=== PATIENT | male | born 1980 | race Caucasian/White ===

== ENCOUNTER 2016-07-13 13:31 | Inpatient (IN) | payer OTHER ==
[~2016-07-13] VITALS: Ht 182.9 cm; Wt 108.9 kg
[2016-07-13] MEDS ORDERED: MORPHINE SULFATE 4 MG/ML CPJ (NOT FOR IM USE) IV STA (15:04)
[2016-07-13] MEDS ORDERED: ONDANSETRON HCL 4MG/2ML VIAL IV STA (15:04)
[2016-07-13] MEDS ORDERED: SODIUM CHLORIDE 0.9% 1,000 ML IV ONE (15:04)
[2016-07-13 15:35] LABS: BASOPHILS % 0.5 % (0.0-2.0); CHLORIDE 106 mEq/L (98-107); EOSINOPHILS % 2.1 % (0.0-5.0); HEMATOCRIT. 44.3 % (42.0-52.0); HEMOGLOBIN. 15.3 g/dL (14.0-18.0); LYMPHOCYTES % 23.5 % (20.0-50.0); MEAN CORPUSCULAR HEMOGLOBIN 30.9 pg (28.0-32.0); MEAN CORPUSCULAR VOLUME 89.3 fL (80.0-94.0); MEAN PLATELET VOLUME 8.6 fl (7.4-10.4); MONOCYTES % 6.8 % (2.0-8.0); NEUTROPHILS % 67.1 % (40.0-76.0); PLATELET 248 x1000/uL (130-400); RED BLOOD CELL COUNT 4.96 mill/uL (4.7-6.1)
[2016-07-13 15:37] LABS: INR 1.1
[2016-07-13 15:44] LABS: CARBON DIOXIDE 29 mEq/L (21-32)
[2016-07-13 16:35] LABS: CLARITY URINE CLEAR (CLEAR); COLOR URINE YELLOW (YELLOW); GLUCOSE URINE NEGATIVE (NEGATIVE); KETONES URINE NEGATIVE (NEGATIVE); NITRITE URINE NEGATIVE (NEGATIVE); OCCULT BLOOD URINE NEGATIVE (NEGATIVE); PROTEIN URINE NEGATIVE (NEGATIVE); SPECIFIC GRAVITY URINE 1.005 (1.005-1.030); UROBILINOGEN URINE 0.2 E.U./dL (0.2-1.0)
[2016-07-13 16:36] LABS: LEUKOCYTE ESTERASE URINE NEGATIVE (NEGATIVE)
[2016-07-13] MEDS ORDERED: METRONIDAZOLE 500 MG PREMIX 100 ML IV ONE (17:30)
[2016-07-13] MEDS ORDERED: PIPERACILLIN/TAZ 3.375G PREMIX 50 ML IV ONE (17:30)
[2016-07-13] MEDS ORDERED: METRONIDAZOLE 500 MG PREMIX 100 ML IV NR (19:30)
[2016-07-13 22:00] VITALS: BP 113/67
[2016-07-13 23:07] VITALS: BP 113/67
[2016-07-13] MEDS ORDERED: DIPHENHYDRAMINE 50MG/ML VIAL IV PRN (23:15)
[2016-07-13] MEDS ORDERED: CLONIDINE 0.1MG TABLET PO PRN (23:15)
[2016-07-13] MEDS ORDERED: ACETAMINOPHEN 650MG/20.3ML UDC GT PRN (23:15)
[2016-07-13] MEDS ORDERED: NA PHOS,M-B/NA PHOS,DI-BA ENEMA 118ML PR PRN (23:15)
[2016-07-13] MEDS ORDERED: ONDANSETRON HCL 4MG/2ML VIAL IV PRN (23:15)
[2016-07-13] MEDS ORDERED: ACETAMINOPHEN 650MG SUPP PR PRN (23:15)
[2016-07-13] MEDS ORDERED: IPRATROPIUM/ALBUTEROL 0.5-3(2.5)MG/3ML NEB INH PRN (23:15)
[2016-07-13] MEDS ORDERED: MAGNESIUM/ALUMINUM HYDROXIDE/SIMETHICONE 30ML UDC PO PRN (23:15)
[2016-07-13] MEDS ORDERED: ACETAMINOPHEN 325MG TABLET PO PRN ×2 (23:15→23:30)
[2016-07-14] MEDS: SODIUM CHLORIDE 0.9% 1,000 ML IV SCH ×2 (00:28→16:44)
[2016-07-14 01:10] VITALS: BP 106/56
[2016-07-14 01:20] LABS: CLARITY URINE CLEAR (CLEAR); COLOR URINE DARK YELLOW (YELLOW); GLUCOSE URINE NEGATIVE (NEGATIVE); KETONES URINE NEGATIVE (NEGATIVE); LEUKOCYTE ESTERASE URINE 1+ (NEGATIVE); NITRITE URINE POSITIVE (NEGATIVE); OCCULT BLOOD URINE NEGATIVE (NEGATIVE); PH URINE 5.5 (4.5-8.0); PROTEIN URINE NEGATIVE (NEGATIVE); SPECIFIC GRAVITY URINE 1.023 (1.005-1.030)
[2016-07-14 01:46] LABS: *AMPHETAMINES SCREEN URINE NEGATIVE (NEGATIVE); *BARBITURATES SCREEN URINE NEGATIVE (NEGATIVE); *BENZODIAZEPINES SCREEN URINE NEGATIVE (NEGATIVE); *COCAINE SCREEN URINE NEGATIVE (NEGATIVE); CANNABINOID URINE SCREEN NEGATIVE (NEGATIVE); METHADONE URINE SCREEN NEGATIVE (NEGATIVE); OPIATES URINE SCREEN PRESUMTIVE POSITIVE (NEGATIVE); PHENCYCLIDINE URINE SCREEN NEGATIVE (NEGATIVE)
[2016-07-14 04:00] VITALS: BP 109/51
[2016-07-14] MEDS ORDERED: RANI-84 PO (04:09)
[2016-07-14] MEDS ORDERED: ONDA4TAB5 PO (04:12)
[2016-07-14] MEDS ORDERED: ALPR-392 MT (04:12)
[2016-07-14] MEDS ORDERED: DICY20TA11 PO (04:12)
[2016-07-14] MEDS: SODIUM CHLORIDE 0.9% INJ 3ML FLUSH IVF SCH ×3 (06:18→21:12)
[2016-07-14] MEDS: HYDROCODONE/ACETAMINOPHEN 5/325MG TABLET PO PRN ×2 (06:30→16:58)
[2016-07-14 08:00] VITALS: BP 110/57
[2016-07-14 12:00] VITALS: BP 118/62
[2016-07-14 12:18] LABS: BASOPHILS % 0.6 % (0.0-2.0); EOSINOPHILS % 3.9 % (0.0-5.0); HEMOGLOBIN. 14.4 g/dL (14.0-18.0); LYMPHOCYTES % 30.2 % (20.0-50.0); MEAN CORPUSCULAR HEMOGLOBIN 31.1 pg (28.0-32.0); MEAN CORPUSCULAR VOLUME 88.7 fL (80.0-94.0); MONOCYTES % 8.4 % (2.0-8.0); NEUTROPHILS % 56.9 % (40.0-76.0); PLATELET 217 x1000/uL (130-400); RED BLOOD CELL COUNT 4.62 mill/uL (4.7-6.1); RED CELL DISTRIBUTION WIDTH 13.3 % (11.6-14.6)
[2016-07-14 12:23] LABS: CHLORIDE 106 mEq/L (98-107)
[2016-07-14 12:33] LABS: AMYLASE 65 IU/L (25-115); CARBON DIOXIDE 28 mEq/L (21-32)
[2016-07-14 12:50] LABS: HEPATITIS B SURFACE ANTIGEN NEGATIVE
[2016-07-14 13:19] LABS: HEPATITIS B CORE AB IGM NEGATIVE
[2016-07-14 13:20] LABS: HEPATITIS A AB IGM NEGATIVE (NEGATIVE)
[2016-07-14] MEDS: PANTOPRAZOLE SODIUM 40 MG/VIAL IV SCH (14:13)
[2016-07-14 16:00] VITALS: BP 104/61
[2016-07-14] MEDS: PIPERACILLIN/TAZ 3.375G PREMIX 50 ML IV SCH ×2 (16:45→21:12)
[2016-07-14 20:00] VITALS: BP 118/60
[2016-07-15] VITALS: BP 104/63
[2016-07-15] MEDS: SODIUM CHLORIDE 0.9% 1,000 ML IV SCH ×3 (01:00→22:10)
[2016-07-15 04:00] VITALS: BP 114/59
[2016-07-15] MEDS: SODIUM CHLORIDE 0.9% INJ 3ML FLUSH IVF SCH ×3 (06:08→21:22)
[2016-07-15] MEDS: PIPERACILLIN/TAZ 3.375G PREMIX 50 ML IV SCH ×3 (06:08→21:23)
[2016-07-15 06:44] LABS: BASOPHILS % 0.9 % (0.0-2.0); EOSINOPHILS % 4.9 % (0.0-5.0); HEMATOCRIT. 39.6 % (42.0-52.0); HEMOGLOBIN. 13.8 g/dL (14.0-18.0); LYMPHOCYTES % 39.2 % (20.0-50.0); MEAN CORPUSCULAR VOLUME 88.8 fL (80.0-94.0); MEAN PLATELET VOLUME 8.7 fl (7.4-10.4); PLATELET 217 x1000/uL (130-400); RED BLOOD CELL COUNT 4.46 mill/uL (4.7-6.1); RED CELL DISTRIBUTION WIDTH 13.2 % (11.6-14.6)
[2016-07-15 07:16] LABS: CHLORIDE 107 mEq/L (98-107)
[2016-07-15 07:35] VITALS: BP 106/63
[2016-07-15 08:05] LABS: CARBON DIOXIDE 25 mEq/L (21-32)
[2016-07-15] MEDS: PANTOPRAZOLE SODIUM 40 MG/VIAL IV SCH (09:13)
[2016-07-15 11:40] VITALS: BP 107/64
[2016-07-15 15:46] VITALS: BP 117/65
[2016-07-15 20:00] VITALS: BP 116/64
[2016-07-16] VITALS: BP 100/58
[2016-07-16 04:00] VITALS: BP 106/60
[2016-07-16] MEDS: SODIUM CHLORIDE 0.9% INJ 3ML FLUSH IVF SCH ×3 (05:14→22:31)
[2016-07-16] MEDS: PIPERACILLIN/TAZ 3.375G PREMIX 50 ML IV SCH ×3 (05:15→22:31)
[2016-07-16 05:32] LABS: PARTIAL THROMBOPLASTIN TIME 24.4 sec (24.0-34.0); PROTHROMBIN TIME 10.7 sec
[2016-07-16 06:15] LABS: BASOPHILS % 0.6 % (0.0-2.0); EOSINOPHILS % 3.9 % (0.0-5.0); HEMATOCRIT. 40.1 % (42.0-52.0); LYMPHOCYTES % 45.4 % (20.0-50.0); MEAN CORPUSCULAR HEMOGLOBIN 31.2 pg (28.0-32.0); MEAN CORPUSCULAR VOLUME 89.6 fL (80.0-94.0); MEAN PLATELET VOLUME 9.1 fl (7.4-10.4); MONOCYTES % 8.3 % (2.0-8.0); NEUTROPHILS % 41.8 % (40.0-76.0); PLATELET 215 x1000/uL (130-400); RED BLOOD CELL COUNT 4.47 mill/uL (4.7-6.1); RED CELL DISTRIBUTION WIDTH 13.5 % (11.6-14.6)
[2016-07-16 06:45] LABS: CARBON DIOXIDE 26 mEq/L (21-32); CHLORIDE 107 mEq/L (98-107)
[2016-07-16 08:00] VITALS: BP 104/51
[2016-07-16] MEDS: PANTOPRAZOLE SODIUM 40 MG/VIAL IV SCH (08:35)
[2016-07-16] MEDS: SODIUM CHLORIDE 0.9% 1,000 ML IV SCH (12:25)
[2016-07-16] MEDS ORDERED: SIMETHICONE 40 MG/0.6 ML 30ML ONE (14:07)
[2016-07-16] MEDS ORDERED: IOHEXOL-300 100 ML BOTTLE ONE (14:07)
[2016-07-16] MEDS ORDERED: SUCCINYLCHOLINE CHLORIDE 200MG/10ML VIAL IV ONE (14:18)
[2016-07-16] MEDS ORDERED: PROPOFOL 200MG/20ML VIAL IV ONE (14:18)
[2016-07-16] MEDS ORDERED: LIDOCAINE HCL 1% 20ML VIAL (Pyxis) INJ ONE (14:18)
[2016-07-16] MEDS ORDERED: FENTANYL CITRATE/PF 50MCG/ML 2ML VIAL ONE (14:19)
[2016-07-16] MEDS ORDERED: MIDAZOLAM HCL 2 MG/2 ML VIAL ONE (14:19)
[2016-07-16] MEDS ORDERED: ONDANSETRON HCL 4MG/2ML VIAL ONE (14:40)
[2016-07-16] MEDS ORDERED: DEXAMETHASONE 4MG/ML 1ML VIAL ONE (14:41)
[2016-07-16] MEDS ORDERED: SODIUM CHLORIDE 0.9% 1,000 ML IV SCH (15:23)
[2016-07-16] MEDS ORDERED: MEPERIDINE HCL/PF 25MG/ML CPJ IV PRN (15:30)
[2016-07-16] MEDS ORDERED: MORPHINE SULFATE 2 MG/ML CPJ (NOT FOR IM USE) IV PRN (15:30)
[2016-07-16] MEDS ORDERED: ONDANSETRON HCL 4MG/2ML VIAL IV PRN (15:30)
[2016-07-16 16:47] VITALS: BP 108/67
[2016-07-16 20:00] VITALS: BP 109/67
[2016-07-17] VITALS: BP 92/51
[2016-07-17] MEDS: SODIUM CHLORIDE 0.9% 1,000 ML IV SCH (03:56)
[2016-07-17 04:00] VITALS: BP 100/57
[2016-07-17] MEDS: SODIUM CHLORIDE 0.9% INJ 3ML FLUSH IVF SCH ×2 (05:31→14:31)
[2016-07-17] MEDS: PIPERACILLIN/TAZ 3.375G PREMIX 50 ML IV SCH ×2 (05:31→14:31)
[2016-07-17 08:00] VITALS: BP 105/71
[2016-07-17] MEDS: PANTOPRAZOLE SODIUM 40 MG/VIAL IV SCH (09:22)
[2016-07-17 12:00] VITALS: BP 106/61
[2016-07-17 12:21] LABS: BASOPHILS % 0.4 % (0.0-2.0); EOSINOPHILS % 1.6 % (0.0-5.0); HEMATOCRIT. 40.4 % (42.0-52.0); HEMOGLOBIN. 13.9 g/dL (14.0-18.0); LYMPHOCYTES % 31.3 % (20.0-50.0); MEAN CORPUSCULAR HEMOGLOBIN 30.9 pg (28.0-32.0); MEAN CORPUSCULAR VOLUME 89.6 fL (80.0-94.0); MEAN PLATELET VOLUME 8.9 fl (7.4-10.4); MONOCYTES % 8.8 % (2.0-8.0); NEUTROPHILS % 57.9 % (40.0-76.0); PLATELET 217 x1000/uL (130-400); RED BLOOD CELL COUNT 4.51 mill/uL (4.7-6.1); RED CELL DISTRIBUTION WIDTH 13.2 % (11.6-14.6)
[2016-07-17 12:42] LABS: CARBON DIOXIDE 30 mEq/L (21-32); CHLORIDE 107 mEq/L (98-107)
[2016-07-17] MEDS ORDERED: LEVO500T15 PO (13:55)
[2016-07-17] MEDS ORDERED: METR250T PO (13:55)
[2016-07-17 14:57] VITALS: BP 106/61
== END 2016-07-17 16:36 | disposition home or self-care (01) | DRG 444 ==
LOC: ER 14:24 → 8WST 18:02
PROVIDERS: ADMIT Family Medicine; ATTEND Family Medicine
PROC: BF131ZZ Fluoroscopy of Gallbladder and Bile Ducts using Low Osmolar Contrast (ICD-10-PCS; 2016-07-16)
PROC: 0FC98ZZ Extirpation of Matter from Common Bile Duct, Via Natural or Artificial Opening Endoscopic (ICD-10-PCS; principal; 2016-07-16 14:00)
DX: K80.71 Calculus of gallbladder and bile duct without cholecystitis with obstruction (principal); K85.10 Biliary acute pancreatitis without necrosis or infection; K76.0 Fatty (change of) liver, not elsewhere classified; R74.0 Nonspecific elevation of levels of transaminase and lactic acid dehydrogenase [LDH]; Z72.89 Other problems related to lifestyle; Z87.891 Personal history of nicotine dependence; Z90.13 Acquired absence of bilateral breasts and nipples
CPT/HCPCS: 36415; 74176; 74181; 74330; 76705; 80053; 80076; 80305; 81001; 81003; 82150; 82248; 83690; 84478; 85025; 85610; 85730; 86705; 86709; 86803; 87340; 96361; 96365; 96367; 96375; 99285; C1726; C1769; C9113; J0330; J1100; J2250; J2270; J2405; J2543; J2704; J3010; J3490; J7030; Q9967